=== PATIENT | male | born 1950 | race Caucasian/White ===

== ENCOUNTER → 2017-02-23 | Outpatient (CLI) | payer OTHER ==
[~2017-02-23] MED LIST: B-COCAP2 PO; BUSP15TA70 PO; CALCTAB5 PO; CHOL100027 PO; CLOP1TAB15 PO; CMD/25 PO; CYAN10002; ENOX80IN SQ; FLR/1 PO; FOLI400T41 PO; HYD10 PO; HYDR-4079 PO; HYDR20TA PO; LEVE500T26 PO; MAGN400T6 PO; PANT40TA PO; WARF5TAB7 PO
[2017-02-23 13:57] VITALS: BP 104/65; PULSE 72; TEMP 36.5; O2SAT 98
--- NOTE | 2017-02-23 16:03 | Radiation Oncology Follow-Up ---
Radiation Oncology Follow-Up Date of Visit Feb 23, 2017. (Kezia Kay PA-C) Reason For Visit Nine-month follow-up (Kezia Kay PA-C) Radiation Completion Date 09/23/15 (Kezia Kay PA-C) Diagnosis (1) Tonsil cancer Status: Resolved Onset Date: 07/08/2015 Permanent Comment: Oropharynx, right tonsil, SCC, [id number], stage II Status post completion of radiation therapy 09/23/2015 received 6996 cGy Course Plan Name [employer] Start Date Stop Date Elapsed Days # TX Daily Dose (cGy) Total Dose (cGy) C1- H&N* VMAT, 3 arcs 6X 08/06/2015 09/23/2015 49 33 212 6996 Last Edited By: Miguel Guzmán on Oct 29, 2015 16:00 (Kezia Kay PA-C) History of Present Illness Mr. Shell is a 66-year-old gentleman with multiple comorbidities who was recently worked up for night sweats. The patient has been followed by Dr. Mzt due to pulmonary issues and he ordered a PET/CT due to concern for possible malignancy. The PET/CT scan was completed on 06/01/2015 and did reveal uptake in the right tonsil with SUV of 10. The asymmetry of the right tonsil measuring 1.6 cm. There was some uptake in the tongue but there was no corresponding mass on the CT scan. The patient was referred to Dr. Foster, ENT , who evaluated the patient and recognized a right tonsillar mass. Dr. Foster to the patient to the operative room on 07/08/2015 and stated that the right tonsil appeared hypertrophic with ulceration and superior adherence. 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 Status post completion of radiation therapy 09/23/2015 received 6996 cGy. (Kezia Kay PA-C) Interim History He continues to use the PEG tube for nearly 100% of intake. He continues to have problems with xerostomia. He denies pain with swallowing. Has had approximately 9 pound weight loss over the past 9 months. He has had issues with a chronic cough. He saw Dr. Cohn and underwent a bronchoscopy. Findings were benign. He continues follow-up with ENT in [place] with scoping's every 3 months. He was seen and scoped August 2016. Had a visit November 2016 without scoping and he'll be having a recheck visit on 03/21/2017. He was previously followed by Dr. Rogers and is now being followed by Dr. Delgado and Jennifer Trejo nurse practitioner. He was seen today. Plans are made for him to have a recheck PET scan in September 2017. He and his asked about recheck MRIs of the brain. He had a previous history of a craniotomy in 1994. He had imaging with MRI of the brain in 2014. This showed the operative bed and there were no findings of metastatic disease. He has noted no changes of the neck. He has found no masses. (Kezia Kya PA-C) Allergies Coded Allergies: Carbamazepine (Verified Allergy, Severe, ITP, BLEEDING, 08/03/16) Ethambutol (Verified Allergy, Severe, severe skin burning, 08/03/16) Ethanol (Verified Allergy, Severe, arrythmia, 08/03/16) Fentanyl (Verified Allergy, Severe, arrythmia, 08/03/16) Home Medications Scheduled Buspirone Hcl (Buspar), 10 MG PO BID Calcium (Caltrate), 600 MG PO BID Cholecalciferol (Vitamin D 1000 Unit), 3,000 INTER.UNIT PO DAILY Clopidogrel (Plavix), 75 MG PO DAILY Cyanocobalamin (Vitamin B-12 Inj), 1XMONTH Fludrocortisone Acetate (Florinef), 0.1 MG PO QD@08 Folic Acid (Folvite), 900 MCG PO DAILY Hydrocortisone (Cortef), 15 MG PO QAM Hydrocortisone (Cortef), 7.5 MG PO QPM Levetiracetam (Keppra), 500 MG PO BID Magnesium Oxide (Mag-Ox), 400 MG PO QD@08 Pantoprazole (Protonix), 40 MG PO DAILY Vitamin B Cmplx/Vitc/Folic Ac (Nephrocaps), 1 CAP PO BID Warfarin Sod (Coumadin), 2.5 MG PO UD Warfarin Sod (Jantoven), 5 MG PO DIRECTED Scheduled PRN Hydrocodone/Acetaminophen 10MG/325MG ([place] 10MG/325MG), 1 TAB PO Q4H PRN for Pain Review of Systems Gastrointestinal: Symptoms: WNL Oral: Symptoms: Scant Saliva/Dry Mouth Other Oral Symptoms: Altered taste;Not using biotene for dry mouth -doesn't help; Respiratory: Symptoms: Dry Cough, Moist Cough, SOB With Exertion, Productive Cough Sputum Character: Red brown phlegm when coughing. Other Respiratory: Reports AM coughing on awaking. Urinary: Symptoms: WNL Skin: Symptoms: No Problems (Kezia Kay PA-C) Physical Exam Vital Signs Date Time Temp Pulse Resp B/P Pulse Ox O2 Delivery O2 Flow Rate FiO2 02/23/17 13:57 36.5 72 20 104/65 98 General Appearance: + thin Eyes: normal inspection, EOMI ENT: normal ENT inspection, hearing grossly normal, + pertinent finding ( trismus, brown coating of the tongue. There are no visible lesions or signs of recurrence of the posterior pharynx.) Neck: supple, no adenopathy, thyroid normal Respiratory/Chest: lungs clear, no respiratory distress, no accessory muscle use Cardiovascular: regular rate, rhythm, no gallop, no murmur Abdomen: non tender, soft Extremities: no pedal edema Neurologic/Psychiatric: no motor/sensory deficits, alert, normal mood/affect Skin: warm/dry Lymphatic: no adenopathy (Kezia Kay PA-C) Laboratory Studies He had normal thyroid function studies 10/05/2016. He had normal carotid Dopplers and 2015. (Kezia Kay PA-C) Assessment & Plan Plan: Patient was also seen and examined by Dr. Guzmán. He is seeing and will have a recheck scoping on 03/21/2017. He was seen by medical oncology and a PET scan is planned for September 2017. We continue to discuss cutting back on smoking. I discussed using humidification in the bedroom to help with xerostomia. Patient did not seem agreeable to this concept. His did think it was a good idea. We asked him to return to our office in October following completion of his PET scan. He may call our office if he has any questions or concerns in the interim. (Kezia Kay PA-C) I agree with note created by Kezia Kay PA-C. I reviewed the patient's chart and information with her. I have examined and evaluated the patient. I reviewed relevant clinical information and answered the patient's and/or family' s questions. (Veeral. Guzmán MD) Total Time In Follow-Up I spent 20 minutes speaking to the patient perform examination. I spent 15 minutes reviewing information in completing this note. (Kezia Kay PA-C) I spent 15 minutes examining and counseling the patient. (Veeral. Guzmán MD) Copy To Dale Delgado D.O.; Mike Foster; Matt Ross DO
== END | disposition home or self-care (01) ==
LOC: C.ONC 13:44
PROVIDERS: ATTEND Physician Assistant Medical
DX: Z08 Encounter for follow-up examination after completed treatment for malignant neoplasm (principal); Z92.3 Personal history of irradiation; Z85.89 Personal history of malignant neoplasm of other organs and systems

== ENCOUNTER → 2017-07-10 | Outpatient (CLI) | payer OTHER ==
[~2017-07-10] MED LIST changes: -ENOX80IN SQ; +OPTIRAY 320 IV PRN
--- NOTE | 2017-07-10 15:36 | DIAGNOSTIC IMAGING REPORT ---
(CHEST) THORAX WITH CLINICAL HISTORY: 66 years-old Male presenting with COPD, dysphasia, chronic cough, night sweats, mycobacterium avium intracellulare, carcinoma of unknown primary. TECHNIQUE: Multidetector CT imaging of the chest was performed after the administration of intravenous contrast. IV contrast: 92 mL of Optiray 320. A dose lowering technique was used consistent with the principles of ALARA (as low as reasonably achievable). COMPARISON: 07/12/2016. CT DOSE (mGy.cm): The estimated cumulative dose is 236.93 mGy.cm. FINDINGS: Roller Bearing Inspector topogram: Unremarkable. On soft tissue windows, normal thyroid and thoracic inlet. Calcified mediastinal and hilar lymphadenopathy again noted, evidence of prior granulomatous infection. Mild atherosclerosis of the four-vessel aortic arch. Normal heart size. Minimal coronary artery calcification. No pericardial or pleural effusion. Gastrostomy tube in place. On lung windows, numerous calcified granulomata. Apical predominant mild emphysema. Dependent minimal opacities likely atelectasis. No new focal infiltrate. Minimal debris noted in the right mainstem bronchus and segmental bronchi of the left lower lobe. On bone windows, degenerative changes of the spine. IMPRESSION: 1. Redemonstration of changes consistent with chronic granulomatous disease. No new focal infiltrate or evidence of active infection. 2. Emphysema. Electronically signed by: Manas Orantes M.D. 07/10/2017 3:34 PM Dictated Date/Time: 07/10/2017 3:30 PM
== END | disposition home or self-care (01) ==
LOC: C.CTS 14:54
PROVIDERS: ATTEND Physician Assistant
DX: A31.0 Pulmonary mycobacterial infection (principal); C80.1 Malignant (primary) neoplasm, unspecified; J44.9 Chronic obstructive pulmonary disease, unspecified; R61 Generalized hyperhidrosis; R05 Cough; R13.10 Dysphagia, unspecified

== ENCOUNTER → 2017-09-20 | Outpatient (CLI) | payer OTHER ==
[~2017-09-20] MED LIST changes: -OPTIRAY 320 IV PRN
--- NOTE | 2017-09-20 13:40 | DIAGNOSTIC IMAGING REPORT ---
PET/CT HISTORY: HEAD NECK CANCER TECHNIQUE: PET/CT was performed from the base of the skull through the pelvis following the intravenous administration of 12.9 mCi of F18-FDG. Non-contrast CT imaging was performed over the same range without breath-hold for attenuation correction of PET images and anatomic correlation, but not for primary interpretation as it is not of standard diagnostic quality. CT DOSE: COMPARISON: Chest CT 07/10/2017. PET CT 09/19/2016. FINDINGS: HEAD AND NECK: There is no FDG-avid disease or significant lymphadenopathy in the imaged portions of the head and the neck. FDG uptake within the glottis and prevertebral soft tissues is likely physiologic. CHEST: There is no FDG-avid disease in the chest. There is no axillary, mediastinal, or hilar lymphadenopathy. There is no pleural or pericardial effusion. There is no air-space disease or suspicious lung nodule. Calcified mediastinal and hilar lymph nodes are again noted. These do not demonstrate significant FDG uptake. Multiple scattered subcentimeter calcified and noncalcified pulmonary nodules remain stable and are likely due to the granulomatous disease. ABDOMEN/PELVIS: Below the diaphragm, tracer is distributed physiologically in the gastrointestinal and genitourinary tracts. There is no significant lymphadenopathy and no FDG-avid disease. Gastrostomy tube is in place. There is an IVC filter present and a stent within the right common iliac artery. MUSCULOSKELETAL: There is no FDG-avid or destructive bone lesion. IMPRESSION: No evidence for FDG avid disease. Electronically signed by: Aleksandar Rucker M.D. 09/20/2017 1:39 PM Dictated Date/Time: 09/20/2017 1:14 PM
== END | disposition home or self-care (01) ==
LOC: C.PET 10:31
PROVIDERS: ATTEND Nurse Practitioner Family
DX: C09.9 Malignant neoplasm of tonsil, unspecified (principal)